=== PATIENT | male | born 1995 | race Caucasian/White ===

== ENCOUNTER → 2018-11-21 | Outpatient (CLI) | payer BC ==
--- NOTE | 2018-11-21 14:53 | RAD ---
EXAM: Chest, 2 views. HISTORY: Cough. COMPARISON: 11/02/2016 FINDINGS: 2 views the chest are obtained. There is no infiltrate, pleural effusion or pneumothorax. The heart is normal in size. There is a cardiac pacemaker with leads in expected position. IMPRESSION: No acute pulmonary finding. Electronically signed by: Lyric Nunez MD (11/21/2018 2:51 PM) [place] [id number]
== END | disposition home or self-care (01) ==
LOC: PMG 13:59
PROVIDERS: ATTEND Physician Assistant Medical
DX: R07.89 Other chest pain (principal); R05 Cough; Z95.0 Presence of cardiac pacemaker
CPT/HCPCS: 71046

== ENCOUNTER 2021-06-25 18:27 | Emergency (ER) | payer BC, OTHER ==
[~2021-06-25] VITALS: Ht 170.2 cm; Wt 100.2 kg
[2021-06-25 19:22] LABS: BASO % 1 % (0-3); EOS # 0.1 x10^3/uL (0.0-0.7); EOS % 1 % (0-3); HEMATOCRIT 42.8 % (39.0-53.0); HEMOGLOBIN 14.7 g/dL (13.0-17.5); LYMPH # 2.2 x10^3/uL (1.0-4.8); LYMPH % 27 % (24-48); MEAN CORPUSCULAR HEMOGLOBIN 30 pg (25-35); MEAN CORPUSCULAR HGB CONC 34 g/dL (31-37); MEAN CORPUSCULAR VOLUME 86 fL (79-100); MONO # 0.7 x10^3/uL (0.0-1.1); MONO % 9 % (0-9); NEUT # 5.1 x10^3uL (1.8-7.7); NEUT % 62 % (31-73); PLATELET COUNT 211 x10^3/uL (140-400); RED BLOOD COUNT 4.95 x10^6/uL (4.30-5.70); RED CELL DISTRIBUTION WIDTH 12.6 % (11.5-14.5); WHITE BLOOD COUNT 8.1 x10^3/uL (4.0-11.0)
[2021-06-25 19:24] LABS: CALCIUM 9.3 mg/dL (8.5-10.1); GFR 89.6; POTASSIUM 3.6 mmol/L (3.5-5.1)
--- NOTE | 2021-06-25 19:28 | RAD ---
XR CHEST 1V History: Reason: CP / Spl. Instructions: / History: Comparison: November 21, 2018 Findings: No consolidation or pleural effusion. Normal heart size. No pneumothorax. Stable left-sided pacemaker . Impression: 1. No acute cardiopulmonary process. Electronically signed by: Ruben Eden DO (06/25/2021 7:25 PM) [facility] [place]
[2021-06-25 19:29] LABS: ALBUMIN 4.5 g/dL (3.4-5.0); ALBUMIN/GLOBULIN RATIO 1.2 (1.0-1.7); TOTAL BILIRUBIN 0.4 mg/dL (0.2-1.0); TOTAL PROTEIN 8.2 g/dL (6.4-8.2)
[2021-06-25 19:31] VITALS: BP 110/79
--- NOTE | 2021-06-25 19:36 | PHYS DOC ---
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 States he was trying a new exercise, the [employer] cardiovascular exercise program at about 35 minutes and began to have some feelings of racing heartbeat in his left lower chest. States it did not really hurt it was just uncomfortable. Denies any headache, lightheadedness, dizziness, changes in vision, actual chest pain, shortness of breath, abdominal pain, nausea, vomiting, dysuria, hematuria, blood in the stool or diarrhea. States he has been eating and drinking normally. States he is making urine and stool normally for him. Denies any alcohol, drug or supplement use. Denies any recent traumas, travels, known ill contacts or rash. States currently he feels completely normal. Review of Systems Review of Systems Review of systems otherwise unremarkable except noted in HPI Allergies Allergies Allergies Coded Allergies Type Severity Reaction Last Updated Verified No Known Drug Allergies 06/25/21 No Physical Exam Physical Exam Constitutional: Well developed, well nourished, no acute distress, non-toxic appearance. [] HENT: Normocephalic, atraumatic, bilateral external ears normal, oropharynx moist, no oral exudates, nose normal. [] Eyes: conjunctiva normal, no discharge. [] Neck: Normal range of motion, no tenderness, supple, no stridor. [] Cardiovascular:Heart rate regular rhythm, no murmur [] Lungs & Thorax: Bilateral breath sounds clear to auscultation [] Abdomen: soft, no tenderness, no masses, no pulsatile masses. [] Skin: Warm, dry, no erythema, no rash. [] Extremities: No tenderness, no cyanosis, no clubbing, ROM intact, no edema. [] Neurologic: Alert and oriented X 3, normal motor function, normal sensory functi on, no focal deficits noted. [] Psychologic: Affect normal, judgement normal, mood normal. [] Current Patient Data Vital Signs Vital Signs Date Time Temp Pulse Resp B/P (MAP) Pulse Ox O2 Delivery O2 Flow Rate FiO2 06/25/21 18:36 98.9 95 15 132/69 (90) 96 Room Air Lab Results Laboratory Tests Test 06/25/21 18:50 White Blood Count 8.1 x10^3/uL (4.0-11.0) Red Blood Count 4.95 x10^6/uL (4.30-5.70) Hemoglobin 14.7 g/dL (13.0-17.5) Hematocrit 42.8 % (39.0-53.0) Mean Corpuscular Volume 86 fL (79-100) Mean Corpuscular Hemoglobin 30 pg (25-35) Mean Corpuscular Hemoglobin Concent 34 g/dL (31-37) Red Cell Distribution Width 12.6 % (11.5-14.5) Platelet Count 211 x10^3/uL (140-400) Neutrophils (%) (Auto) 62 % (31-73) Lymphocytes (%) (Auto) 27 % (24-48) Monocytes (%) (Auto) 9 % (0-9) Eosinophils (%) (Auto) 1 % (0-3) Basophils (%) (Auto) 1 % (0-3) Neutrophils # (Auto) 5.1 x10^3uL (1.8-7.7) Lymphocytes # (Auto) 2.2 x10^3/uL (1.0-4.8) Monocytes # (Auto) 0.7 x10^3/uL (0.0-1.1) Eosinophils # (Auto) 0.1 x10^3/uL (0.0-0.7) Basophils # (Auto) 0.0 x10^3/uL (0.0-0.2) EKG EKG Normal rate, normal rhythm, PVCs, no STEMI [] Radiology/Procedures Radiology/Procedures [] Heart Score C/O Chest Pain: No Risk Factors: Risk Factors: DM, Current or recent (<one month) smoker, HTN, HLP, family history of CAD, obesity. Risk Scores: Risk Factors: DM, Current or recent (<one month) smoker, HTN, HLP, family history of CAD, obesity. Course & Med Decision Making Course & Med Decision Making Patient is a 26-year-old male who presents with chest discomfort, has a history of pacemaker placement. States this happened while he was 35 minutes into a workout. Vital signs not concerning. Physical exam noted above. EKG not concerning. Troponin normal. Discussed patient with [employer] after pacemaker interrogation who stated he had no events and was completely normal. Patient asymptomatic here in the ED. Laboratory analysis not concerning. Patient remained asymptomatic with normal vital signs. Discussed all findings with family. Advised to call both primary care physician and content coordinator first thing in the morning to update on ED visit. Gave strict return precautions to the ED. Family grateful, verbalized understanding and agreed with plan of discharge. Dragon Disclaimer Dragon Disclaimer This electronic medical record was generated, in whole or in part, using a voice recognition dictation system. Departure Departure: Impression: Primary Impression: Chest pain Disposition: HOME / SELF CARE / HOMELESS Condition: GOOD Referrals: HENRI MCGUIRE (PCP) Patient Instructions: Chest Pain (Nonspecific) Additional Instructions: Thank you for coming into the emergency department tonight and allowing us to take care of you. Please read the attached information carefully to go over things we discussed. As we discussed, please eat and drink normally, and drink plenty of fluids as you do appear slightly dehydrated. Please do not intake any caffeine, stimulants or workout supplements. I would refrain from exercising until you discuss your ED visit with your primary care physician and content coordinator. Please come back to the ED with new or concerning symptoms as we discussed. MOLLY BAKER MD Jun 25, 2021 19:36
[2021-06-25 19:48] LABS: BACTERIA,URINE 0 /HPF (0-FEW); BILIRUBIN,URINE NEG (NEG); CLARITY,URINE CLEAR; COLOR,URINE YELLOW; GLUCOSE,URINE NEG (NEG); NITRITE,URINE NEG (NEG); RBC,URINE 0 /HPF (0-2); SQUAMOUS EPITHELIAL CELL,UR FEW /LPF; UROBILINOGEN,URINE 0.2 mg/dL (0.2 mg/dL); WBC,URINE 0 /HPF (0-4)
--- NOTE | 2021-06-26 07:43 | EKG ---
[address] [address] Test Date: 2021-06-25 Test Time: 18:37:20 Pat Name: BESSIE FINNEGAN Department: Room: Gender: M Test Driver: CARMEN : 1995 Requested By: MOLLY BAKER Order Number: [id number] Reading MD: Measurements Intervals [place] Rate: 93 P: 43 [place]: 210 QRS: 1 QRSD: 102 T: 54 QT: 330 QTc: 413 Interpretive Statements SINUS RHYTHM PROLONGED [place] INTERVAL ABNORMAL ECG RI6.02 No previous ECG available for comparison
--- NOTE | 2021-06-30 13:53 | EKG ---
[address] [address] Test Date: 2021-06-25 Test Time: 18:37:20 Pat Name: BESSIE FINNEGAN Department: Room: Gender: M Director Of Philanthropy: CARMEN : 1995 Requested By: MOLLY BAKER Order Number: [id number] Reading MD: Measurements Intervals [place] Rate: 93 P: 43 [place]: 210 QRS: 1 QRSD: 102 T: 54 QT: 330 QTc: 413 Interpretive Statements SINUS RHYTHM PROLONGED [place] INTERVAL ABNORMAL ECG RI6.02 Compared to ECG 03/22/2012 22:41:42 Sinus tachycardia no longer present Right-axis deviation no longer present T-wave abnormality no longer present
== END 2021-06-25 19:42 | disposition home or self-care (01) ==
LOC: ER 18:27
DX: R07.89 Other chest pain (principal)
CPT/HCPCS: 36415; 71045; 80053; 81001; 83735; 84484; 85025; 93005; 99285-25